=== PATIENT | female | born 2000 | race African-American/Black ===

== ENCOUNTER 2019-08-22 13:52 | Emergency (ER) | payer BC, OTHER ==
[~2019-08-22] VITALS: Ht 167.6 cm; Wt 96.2 kg
[2019-08-22 14:12] VITALS: BP 122/76
[2019-08-22] MEDS ORDERED: Ketorolac 30mg Inj IM ONE (14:30)
[2019-08-22] MEDS ORDERED: Methocarbamol 750mg tab ORAL ONE (14:30)
--- NOTE | 2019-08-22 15:41 | Diagnostic Imaging Report ---
Clinical Indication:Trauma, pain Technique: 3 views of the right wrist Comparison: None Findings: No acute fractures. No dislocations. The joint spaces are preserved Impression: Negative
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
[2019-08-22] MEDS ORDERED: ROBAXIN-500MG ORAL (15:56)
[2019-08-22] MEDS ORDERED: LIDODERM700 M1 TOPIC (15:56)
[2019-08-22] MEDS ORDERED: IBUPROFEN600 M1 ORAL (15:56)
[2019-08-22 16:35] VITALS: BP 125/80
== END 2019-08-22 16:35 | disposition home or self-care (01) ==
LOC: EMR 14:27
DX: S16.1XXA Strain of muscle, fascia and tendon at neck level, initial encounter (principal); S60.211A Contusion of right wrist, initial encounter; V43.52XA Car driver injured in collision with other type car in traffic accident, initial encounter; Y92.411 Interstate highway as the place of occurrence of the external cause
CPT/HCPCS: 73110; 96372; 99283; J1885